=== PATIENT | female | born 1935 | race Caucasian/White ===

== ENCOUNTER 2017-06-04 12:07 | Emergency (ER) | payer MEDICARE, BC ==
[~2017-06-04] VITALS: Ht 162.6 cm; Wt 80.7 kg
[~2017-06-04 12:07] MED LIST: ASPI81TA31 PO; LISI10TA5 PO; PRAS10TA5 PO; ROSU5TAB PO
[2017-06-04] MEDS ORDERED: CLOP75TA33 PO (12:25)
[2017-06-04] MEDS ORDERED: ROSU20TA PO (12:25)
[2017-06-04] MEDS ORDERED: LISI-607 PO (12:25)
--- NOTE | 2017-06-04 12:59 | NUR ---
PATIENT WAS SEEN BY MD FOR HEAD INJURY. SHE IS A/A/O X3 IN NO DISTRESS. SHE IS AMBULATORY. AWAITING CT SCAN RESULT.
--- NOTE | 2017-06-04 13:36 | NUR ---
DC AND FOLLOW UP INSTRUCTIONS GIVEN AND EXPLAINED TO PATIENT AND SON WHO STATE THEY UNDERSTAND ALL INSTRUCTIONS.
== END 2017-06-04 13:38 | disposition home or self-care (01) ==
LOC: ER 12:13
DX: S06.0X0A Concussion without loss of consciousness, initial encounter (principal); I10 Essential (primary) hypertension; Z95.5 Presence of coronary angioplasty implant and graft; Z85.820 Personal history of malignant melanoma of skin; Z79.02 Long term (current) use of antithrombotics/antiplatelets; Z79.82 Long term (current) use of aspirin; W01.0XXA Fall on same level from slipping, tripping and stumbling without subsequent striking against object, initial encounter; Y93.89 Activity, other specified; Y92.9 Unspecified place or not applicable; Y99.9 Unspecified external cause status
CPT/HCPCS: 70450; A4663

== ENCOUNTER 2019-06-04 14:44 | Emergency (ER) | payer MEDICARE, BC ==
[~2019-06-04] VITALS: Ht 157.5 cm; Wt 75.7 kg
[~2019-06-04 14:44] MED LIST changes: +CLOP75TA33 PO; +LISI-607 PO; -LISI10TA5 PO; -PRAS10TA5 PO; +ROSU20TA2 PO; -ROSU5TAB PO
--- NOTE | 2019-06-04 15:12 | NUR ---
Patient does not wish to proceed with medical care recommended by Dr. GUSMAN. Patient given information related to possible complications, up to and including , which could occur as a result of leaving the hospital at this time. Patient verbalizes understanding of risks involved due to leaving against medical advice. Patient has signed AMA form.
== END 2019-06-04 15:16 | disposition left against medical advice (07) ==
LOC: ER 14:44
DX: I20.0 Unstable angina (principal); E66.9 Obesity, unspecified; Z68.34 Body mass index [BMI] 34.0-34.9, adult; I10 Essential (primary) hypertension; E78.5 Hyperlipidemia, unspecified; Z79.01 Long term (current) use of anticoagulants; Z79.82 Long term (current) use of aspirin; Z79.899 Other long term (current) drug therapy
CPT/HCPCS: 93005; A4663